=== PATIENT | male | born 1990 | race Caucasian/White ===

== ENCOUNTER 2019-05-05 22:46 | Emergency (ER) | payer SELFPAY ==
[2019-05-05 23:25] LABS: Basophils # (Auto) 0.1 K/mm3 (0.0-0.1); Basophils % (Auto) 0.5 % (0.0-1.8); Eosinophils # (Auto) 0.2 K/mm3 (0.0-0.4); Eosinophils % (Auto) 1.7 % (0.0-4.3); Hematocrit 43.6 % (35.5-45.6); Hemoglobin 14.8 gm/dl (11.8-15.2); Lymphocytes # (Auto) 1.8 K/mm3 (1.2-5.4); Lymphocytes % (Auto) 16.1 % (13.4-35.0); Mean Corpuscular HGB Conc 34 % (32-34); Mean Corpuscular Volume 88 fl (84-94); Monocytes # (Auto) 0.8 K/mm3 (0.0-0.8); Monocytes % (Auto) 6.8 % (0.0-7.3); Platelet Count 218 K/mm3 (140-440); Red Blood Count 4.98 M/mm3 (3.65-5.03); Red Cell Distribution Width 13.3 % (13.2-15.2)
[2019-05-05 23:42] LABS: Albumin 4.7 g/dL (3.9-5); Calcium 9.3 mg/dL (8.4-10.2)
[2019-05-06] LABS: Bilirubin,Urine NEG (Negative); Blood,Urine NEG (Negative); Color,Urine Yellow (Yellow); Mucus,Urine 2+ /HPF; Urobilinogen,Urine < 2.0 mg/dL (<2.0)
[2019-05-06] MEDS ORDERED: ONDANSETRON 4 MG/2 ML INJ IV ONE (00:35)
[2019-05-06] MEDS ORDERED: KETOROLAC 30 MG/1 ML INJ IV ONE (00:35)
[2019-05-06] MEDS ORDERED: SODIUM CHLORIDE 0.9% 1000 ML 1,000 ML IV ONE (00:35)
[2019-05-06] MEDS ORDERED: ONDANSETRON 4 MG/2 ML INJ ONE (00:40)
--- NOTE | 2019-05-06 01:10 | Emergency Department Report ---
ED Abdominal Pain HPI - General Chief Complaint: Abdominal Pain Stated Complaint: FLANK PAIN Time Seen by Provider: 05/06/19 00:07 Source: patient Mode of arrival: Ambulatory Limitations: No Limitations - History of Present Illness Initial Comments: Mr. Contreras is s 28 y/o male who presents for 7 right flanke pain x today, pt denies hx of renal stones. Pain is described as sharp exacerbated by movement, pain radiates to superpubic, there is no fever or chills, this is nausea, no vomiting, , symptoms are relieved by nothing, pt endorse dysuria, frequency, and urgency, no penile discharge no hematuria. MD Complaint: abdominal pain, flank pain Onset/Timin -: days(s) Location: suprapubic, R flank Radiation: suprapubic, R flank Migration to: suprapubic Severity: moderate Severity scale (0 -10): 6 Quality: sharp Consistency: constant Improves With: nothing Worsens With: movement Associated Symptoms: nausea, dysuria. denies: fever, chills, melena, hematuria - Related Data Previous Rx's Medication Instructions Recorded Last Taken Type Ciprofloxacin HCl [Ciprofloxacin 500 mg PO BID 10 Days #20 tab 05/06/19 Unknown Rx TAB] Ketorolac [Toradol] 10 mg PO Q6H PRN #12 tablet 05/06/19 Unknown Rx Tamsulosin [Flomax] 0.4 mg PO QDAY #14 cap 05/06/19 Unknown Rx Allergies Allergy/AdvReac Type Severity Reaction Status Date / Time No Known Allergies Allergy Verified 05/05/19 22:48 ED Review of Systems ROS: Stated complaint: FLANK PAIN Other details as noted in HPI Constitutional: denies: chills, fever Eyes: denies: eye pain, eye discharge, vision change ENT: denies: ear pain, throat pain Respiratory: denies: cough, shortness of breath, wheezing Cardiovascular: denies: chest pain, palpitations Endocrine: no symptoms reported Gastrointestinal: abdominal pain, nausea. denies: vomiting, diarrhea, co nstipation, melena Genitourinary: urgency, dysuria, frequency. denies: hematuria, discharge, testicular pain, testicular mass Musculoskeletal: back pain (right flank ) Skin: denies: rash, lesions Neurological: denies: headache, weakness, paresthesias Psychiatric: denies: anxiety, depression Hematological/Lymphatic: denies: easy bleeding, easy bruising ED Past Medical Hx - Past Medical History Previous Medical History?: No - Surgical History Past Surgical History?: No - Social History Smoking Status: Current Every Day Smoker Substance Use Type: None - Medications Home Medications: Home Medications Medication Instructions Recorded Confirmed Last Taken Type Ciprofloxacin HCl [Ciprofloxacin 500 mg PO BID 10 Days #20 tab 05/06/19 Unknown Rx TAB] Ketorolac [Toradol] 10 mg PO Q6H PRN #12 tablet 05/06/19 Unknown Rx Tamsulosin [Flomax] 0.4 mg PO QDAY #14 cap 05/06/19 Unknown Rx ED Physical Exam - General Limitations: No Limitations General appearance: alert, in no apparent distress - Head Head exam: Present: atraumatic, normocephalic - Eye Eye exam: Present: normal appearance, PERRL, EOMI Pupils: Present: normal accommodation - ENT ENT exam: Present: mucous membranes moist - Neck Neck exam: Present: normal inspection, full ROM - Respiratory Respiratory exam: Present: normal lung sounds bilaterally. Absent: respiratory distress, wheezes, stridor, chest wall tenderness - Cardiovascular Cardiovascular Exam: Present: regular rate, normal rhythm, normal heart sounds. Absent: systolic murmur, diastolic murmur, rubs, gallop - GI/Abdominal GI/Abdominal exam: Present: soft, tenderness (right flank ), normal bowel sounds. Absent: distended, guarding, rebound, rigid, bruit, hernia - Expanded GI/Abdominal Exam Expanded GI/Abdominal exam: Absent: obturator sign, heel tap sign, Chopra's sign, Rovsing's sign, tenderness at [place]bur[place]'s Point, ascites - Rectal Rectal exam: Present: deferred - Extremities Exam Extremities exam: Present: normal inspection, full ROM, normal capillary refill. Absent: tenderness, pedal edema - Back Exam Back exam: Present: normal inspection, full ROM, tenderness, CVA tenderness (R). Absent: CVA tenderness (L), muscle spasm, paraspinal tenderness, rash noted - Neurological Exam Neurological exam: Present: alert, oriented X3, CN II-XII intact, normal gait - Psychiatric Psychiatric exam: Present: normal mood, anxious - Skin Skin exam: Present: warm, dry, intact, normal color ED Course Vital Signs 05/05/19 22:53 Temperature 99.1 F Pulse Rate 76 Respiratory 18 Rate Blood Pressure 134/95 O2 Sat by Pulse 96 Oximetry ED Medical Decision Making - Lab Data Result diagrams: 05/05/19 23:01 05/05/19 23:01 Labs 05/05/19 05/05/19 05/05/19 23:01 23:01 23:38 WBC 11.5 H RBC 4.98 Hgb 14.8 Hct 43.6 MCV 88 MCH 30 MCHC 34 RDW 13.3 Plt Count 218 Lymph % (Auto) 16.1 [place] % (Auto) 6.8 Eos % (Auto) 1.7 Baso % (Auto) 0.5 Lymph # 1.8 Randolph # 0.8 Eos # 0.2 Baso # 0.1 Seg Neutrophils % 74.9 H Seg Neutrophils # 8.6 H Sodium 142 Potassium 4.1 Chloride 103.2 Carbon Dioxide 25 Anion Gap 18 BUN 16 Creatinine 1.4 Estimated GFR 60 BUN/Creatinine Ratio 11 Glucose 112 H Calcium 9.3 Total Bilirubin 0.40 AST 19 ALT 23 Alkaline Phosphatase 72 Total Protein 7.5 Albumin 4.7 Albumin/Globulin Ratio 1.7 Urine Color Yellow Urine Turbidity Clear Urine pH 5.0 Ur Specific [place] 1.036 H Urine Protein 30 mg/dl Urine Glucose (UA) Neg Urine Ketones Neg Urine Blood Neg Urine Nitrite Neg Urine Bilirubin Neg Urine Urobilinogen < 2.0 Ur Leukocyte Esterase Neg Urine WBC (Auto) 1.0 Urine RBC (Auto) 13.0 U Epithel Cells (Auto) < 1.0 Urine Mucus 2+ - Radiology Data Radiology results: report reviewed, image reviewed Ordering Physician: BERNARDINO REHMAN NP Date of Service: 05/06/19 Procedure(s): CT abdomen pelvis wo con Accession Number(s): [id number] cc: BERNARDINO REHMAN NP CT ABDOMEN AND PELVIS WITHOUT CONTRAST INDICATION / CLINICAL INFORMATION: Right flank pain which started today. TECHNIQUE: Axial CT images were obtained through the abdomen and pelvis without IV contrast. All CT scans at this location are performed using CT dose reduction for ALARA by means of automated exposure control. COMPARISON: None available. FINDINGS: LOWER CHEST: No significant abnormality. LIVER: No significant abnormality. GALLBLADDER: No significant abnormality. BILE DUCTS: No significant abnormality. PANCREAS: No significant abnormality. SPLEEN: No significant abnormality. ADRENALS: No significant abnormality. RIGHT KIDNEY and URETER: 3 mm stone in the distal right ureter near the ureterovesical junction producing mild right hydroureteronephrosis and minimal perinephric stranding. LEFT KIDNEY and URETER: No significant abnormality. STOMACH and SMALL BOWEL: No significant abnormality. COLON: No significant abnormality. APPENDIX: No significant abnormality. PERITONEUM: No free fluid. No free air. No fluid collection. LYMPH NODES: No significant adenopathy. AORTA and ARTERIES: No significant abnormality. IVC and VEINS: No significant abnormality. URINARY BLADDER: No significant abnormality. REPRODUCTIVE ORGANS: No significant abnormality. ADDITIONAL FINDINGS: Diffuse subcutaneous soft tissue nodules primarily in the lower chest and abdominal wall. SKELETAL SYSTEM: No significant abnormality. IMPRESSION: 1. 3 mm stone in the distal right ureter with mild right hydronephrosis. 2. Diffuse subcutaneous soft tissue nodules of uncertain etiology. Signer Name: Milana Alcantar MD Signed: 05/06/2019 1:49 AM Workstation Name: [id number] Transcribed By: DT Dictated By: Héctor Alcantar MD Electronically Authenticated By: Héctor Alcantar MD Signed Date/Time: 05/06/19148 DD/ 4 TD/TT: - Medical Decision Making ct: renal stone 3mm, mild hydronephrosis, pt is voiding without difficulty after ketoralac , there is no fever or chills, no n/v no back pain , wbc: normal, p rima: cipro, flomax, toradol follow up with urology in 2-3 days, given referral to urology. will follow up with same in 2-3 days. pt dc'd to home in stable condition at this time. Critical care attestation.: If time is entered above; I have spent that time in minutes in the direct care of this critically ill patient, excluding procedure time. ED Disposition Clinical Impression: Renal stones Disposition: DC-01 TO HOME OR SELFCARE Is pt being admited?: No Does the pt Need Aspirin: No Condition: Stable Instructions: Kidney Stones (ED) Prescriptions: Ciprofloxacin HCl [Ciprofloxacin TAB] 500 mg PO BID 10 Days #20 tab Tamsulosin [Flomax] 0.4 mg PO QDAY #14 cap Ketorolac [Toradol] 10 mg PO Q6H PRN #12 tablet PRN Reason: Pain Referrals: DILEEP HAN MD [Staff Physician] - 3-5 Days Forms: Work/School Release Form(ED) Time of Disposition: 02:21
--- NOTE | 2019-05-06 01:53 | Cat Scan Report ---
CT ABDOMEN AND PELVIS WITHOUT CONTRAST INDICATION / CLINICAL INFORMATION: Right flank pain which started today. TECHNIQUE: Axial CT images were obtained through the abdomen and pelvis without IV contrast. All CT scans at [facility] location are performed using CT dose reduction for ALARA by means of automated exposure control. COMPARISON: None available. FINDINGS: LOWER CHEST: No significant abnormality. LIVER: No significant abnormality. GALLBLADDER: No significant abnormality. BILE DUCTS: No significant abnormality. PANCREAS: No significant abnormality. SPLEEN: No significant abnormality. ADRENALS: No significant abnormality. RIGHT KIDNEY and URETER: 3 mm stone in the distal right ureter near the ureterovesical junction produ cing mild right hydroureteronephrosis and minimal perinephric stranding. LEFT KIDNEY and URETER: No significant abnormality. STOMACH and SMALL BOWEL: No significant abnormality. COLON: No significant abnormality. APPENDIX: No significant abnormality. PERITONEUM: No free fluid. No free air. No fluid collection. LYMPH NODES: No significant adenopathy. AORTA and ARTERIES: No significant abnormality. IVC and VEINS: No significant abnormality. URINARY BLADDER: No significant abnormality. REPRODUCTIVE ORGANS: No significant abnormality. ADDITIONAL FINDINGS: Diffuse subcutaneous soft tissue nodules primarily in the lower chest and abdomi nal wall. SKELETAL SYSTEM: No significant abnormality. IMPRESSION: 1. 3 mm stone in the distal right ureter with mild right hydronephrosis. 2. Diffuse subcutaneous soft tissue nodules of uncertain etiology. Signer Name: Milana Alcantar MD Signed: 05/06/2019 1:49 AM Workstation Name: [id number]
[2019-05-06 02:40] VITALS: BP 128/78
== END 2019-05-06 02:30 | disposition home or self-care (01) ==
LOC: ED 22:46
DX: N13.2 Hydronephrosis with renal and ureteral calculous obstruction (principal); F17.200 Nicotine dependence, unspecified, uncomplicated; Z79.899 Other long term (current) drug therapy
CPT/HCPCS: 36415; 74176; 80053; 81001; 85025; 96374; 96375; 99284; J1885; J2405; J7030